=== PATIENT | male | born 1965 | race Caucasian/White ===

== ENCOUNTER 2019-06-28 02:08 | Inpatient (IN) | payer MEDICAID ==
[~2019-06-28] VITALS: Ht 165.1 cm; Wt 63.5 kg
[2019-06-28 03:10] LABS: HEMATOCRIT. 33.9 % (42.0-52.0); HEMOGLOBIN. 11.4 g/dL (14.0-18.0); MEAN CORPUSCULAR HEMOGLOBIN 31.5 pg (28.0-32.0); MEAN CORPUSCULAR VOLUME 93.9 fL (80.0-94.0); MEAN PLATELET VOLUME 8.2 fl (7.4-10.4); PLATELET 278 x1000/uL (130-400); RED BLOOD CELL COUNT 3.61 mill/uL (4.7-6.1); RED CELL DISTRIBUTION WIDTH 17.4 % (11.6-14.6)
[2019-06-28 03:13] LABS: CHLORIDE 101 mEq/L (98-107)
[2019-06-28 03:52] LABS: PLATELET ESTIMATE NORMAL
[2019-06-28] MEDS ORDERED: CLONIDINE 0.2MG TABLET PO ONE (05:30)
[2019-06-28 09:30] VITALS: BP 196/93
[2019-06-28 09:36] VITALS: BP 196/93
[2019-06-28] MEDS ORDERED: NITROGLYCERIN 0.4MG TABLET SL SL PRN (09:45)
[2019-06-28] MEDS ORDERED: IPRATROPIUM/ALBUTEROL 0.5-3(2.5)MG/3ML NEB NEB PRN (09:45)
[2019-06-28] MEDS ORDERED: ONDANSETRON HCL 4MG/2ML INJ IV PRN (09:45)
[2019-06-28] MEDS ORDERED: ACETAMINOPHEN 325MG TABLET PO PRN (09:45)
[2019-06-28] MEDS ORDERED: TRAMADOL 50MG TABLET PO PRN (09:45)
[2019-06-28] MEDS ORDERED: LORAZEPAM 0.5MG TABLET PO PRN (09:45)
[2019-06-28] MEDS ORDERED: DOCUSATE SODIUM 100MG CAPSULE PO PRN (09:45)
[2019-06-28] MEDS ORDERED: GUAIFENESIN 200MG/10ML SUGAR FREE UDC PO PRN (09:45)
[2019-06-28] MEDS ORDERED: CLONIDINE 0.1MG TABLET PO PRN (09:45)
[2019-06-28] MEDS ORDERED: DIPHENHYDRAMINE 50MG/ML VIAL IV PRN (09:45)
[2019-06-28] MEDS ORDERED: MAGNESIUM/ALUMINUM HYDROXIDE/SIMETHICONE 30ML UDC PO PRN (09:45)
[2019-06-28] MEDS: ASPIRIN 325MG EC TABLET PO SCH (10:23)
[2019-06-28] MEDS: FAMOTIDINE 20MG TABLET PO SCH (10:23)
[2019-06-28] MEDS: ENOXAPARIN 30MG/0.3ML SYR SUBCUT SCH (10:24)
[2019-06-28] MEDS: AMLODIPINE 10MG TABLET PO SCH (10:24)
[2019-06-28 12:00] VITALS: BP 170/96
[2019-06-28] MEDS: SEVELAMER CARBONATE 800 MG TABLET PO SCH ×2 (12:46→17:40)
[2019-06-28] MEDS: HYDRALAZINE HCL 50MG TABLET PO SCH ×2 (13:19→22:25)
[2019-06-28 16:00] VITALS: BP 172/73
[2019-06-28] MEDS ORDERED: DEXTROSE 50% WATER 50ML SYRINGE IV PRN (17:00)
[2019-06-28] MEDS: BLOOD SUGAR DIAGNOSTIC STRIP TEST SCH ×2 (17:16→21:23)
[2019-06-28] MEDS: INSULIN LISPRO 100 UNITS/ML SUBCUT SCH ×2 (17:17→21:00)
[2019-06-28] MEDS: SODIUM POLYSTYRENE SULFONATE 15 G/60 ML BOT PO NR (17:49)
[2019-06-28 20:00] VITALS: BP 130/63
[2019-06-28] MEDS ORDERED: ZOLPIDEM TARTRATE 5MG TABLET PO PRN (21:00)
[2019-06-28] MEDS: METOPROLOL TARTRATE 25MG TABLET PO SCH (22:25)
[2019-06-29] VITALS: BP 157/67
[2019-06-29 04:00] VITALS: BP 146/60
[2019-06-29] MEDS: BLOOD SUGAR DIAGNOSTIC STRIP TEST SCH ×4 (05:44→21:00)
[2019-06-29] MEDS: INSULIN LISPRO 100 UNITS/ML SUBCUT SCH ×4 (05:50→21:00)
[2019-06-29] MEDS: HYDRALAZINE HCL 50MG TABLET PO SCH ×3 (05:50→21:39)
[2019-06-29 06:46] LABS: CHLORIDE 97 mEq/L (98-107)
[2019-06-29 06:49] LABS: BASOPHILS % 1.1 % (0.0-2.0); EOSINOPHILS % 4.9 % (0.0-5.0); HEMATOCRIT. 34.6 % (42.0-52.0); HEMOGLOBIN. 11.6 g/dL (14.0-18.0); LYMPHOCYTES % 23.7 % (20.0-50.0); MEAN CORPUSCULAR HEMOGLOBIN 31.4 pg (28.0-32.0); MEAN CORPUSCULAR VOLUME 93.9 fL (80.0-94.0); MEAN PLATELET VOLUME 8.2 fl (7.4-10.4); MONOCYTES % 8.7 % (2.0-8.0); NEUTROPHILS % 61.6 % (40.0-76.0); PLATELET 227 x1000/uL (130-400); RED BLOOD CELL COUNT 3.69 mill/uL (4.7-6.1); RED CELL DISTRIBUTION WIDTH 17.2 % (11.6-14.6)
[2019-06-29 06:52] LABS: PHOSPHORUS 6.1 mg/dL (2.5-4.9)
[2019-06-29 06:55] LABS: CREATINE KINASE 59 IU/L (39-308)
[2019-06-29 06:57] LABS: CREATINE KINASE MB FRACTION 1.3 ng/mL (0.5-3.6)
[2019-06-29 07:57] VITALS: BP 124/47
[2019-06-29] MEDS: METOPROLOL TARTRATE 25MG TABLET PO SCH ×2 (08:04→21:39)
[2019-06-29] MEDS: ENOXAPARIN 30MG/0.3ML SYR SUBCUT SCH (08:04)
[2019-06-29] MEDS: ASPIRIN 325MG EC TABLET PO SCH (08:04)
[2019-06-29] MEDS: AMLODIPINE 10MG TABLET PO SCH (08:04)
[2019-06-29] MEDS: SEVELAMER CARBONATE 800 MG TABLET PO SCH ×3 (08:04→17:27)
[2019-06-29] MEDS: FAMOTIDINE 20MG TABLET PO SCH (08:06)
[2019-06-29] MEDS ORDERED: FOLIC ACID/VITAMIN B COMP W-C TABLET PO SCH (09:00)
[2019-06-29 12:00] VITALS: BP 133/58
[2019-06-29] MEDS: SODIUM POLYSTYRENE SULFONATE 15 G/60 ML BOT PO NR (15:25)
[2019-06-29 16:00] VITALS: BP 145/62
[2019-06-29 20:00] VITALS: BP 173/65
[2019-06-30] VITALS: BP 146/58
[2019-06-30 04:00] VITALS: BP 157/66
[2019-06-30] MEDS: HYDRALAZINE HCL 50MG TABLET PO SCH (05:50)
[2019-06-30] MEDS: INSULIN LISPRO 100 UNITS/ML SUBCUT SCH (06:45)
[2019-06-30] MEDS: BLOOD SUGAR DIAGNOSTIC STRIP TEST SCH (06:45)
== END 2019-06-30 08:18 | disposition left against medical advice (07) | DRG 133 ==
LOC: EDSEX 02:08 → ER 03:14 → 8WST 05:43 → ENRESERV 07:12
PROVIDERS: ADMIT Internal Medicine; ATTEND Internal Medicine
PROC: 5A1D70Z Performance of Urinary Filtration, Intermittent, Less than 6 Hours Per Day (ICD-10-PCS; principal; 2019-06-28)
DX: J96.00 Acute respiratory failure, unspecified whether with hypoxia or hypercapnia (principal); I13.2 Hypertensive heart and chronic kidney disease with heart failure and with stage 5 chronic kidney disease, or end stage renal disease; E11.22 Type 2 diabetes mellitus with diabetic chronic kidney disease; E87.5 Hyperkalemia; N18.6 End stage renal disease; I50.33 Acute on chronic diastolic (congestive) heart failure; D63.1 Anemia in chronic kidney disease; E87.70 Fluid overload, unspecified; Z53.29 Procedure and treatment not carried out because of patient's decision for other reasons; Z99.2 Dependence on renal dialysis; Z91.19 Patient's noncompliance with other medical treatment and regimen; Z79.899 Other long term (current) drug therapy; Z79.4 Long term (current) use of insulin
CPT/HCPCS: 36415; 71045; 80061; 82550; 82553; 82962; 83036; 83735; 83880; 84100; 84484; 93005; 93970; 99291; J1200; J1650